=== PATIENT | female | born 1975 | race Caucasian/White ===

== ENCOUNTER 2023-04-08 15:30 | Outpatient (RCR) | payer OTHER, SELFPAY ==
--- NOTE | 2023-01-28 11:51 | PTOPEVAL1 ---
Assessment and note entered by Abdullahi De Jesus Evaluation Information Assessment Status Evaluation Diagnosis pain in the right knee Onset 07/28/22 Subjective Information Pt. reports right knee pain began about 6 months ago. She does not recall a particular incident that brought her pain on. She reports that pain is most noticable with kneeling, especially during yoga. She states that stairs and squatting do not increase her pain. She describes all her pain on the inside of the right knee. She reports that pain in the knee is not notice with walking. She states that she enjoys participating in yoga for exercise, but is limited in regards to what she can do because of her pain. She reports that her goal for therapy is to be able to kneel comfortably. Reported Pain Level Pain Score 4: Self Report Assessment PT Clinical Summary Pt. is a 47 year old female who enters the clinic with right knee pain. She presents with impaired proximal l.e. strength, impaired gait mechanics and pain with palpation and knee flexion. Continued skilled PT is indicated in order to improve these areas to allow for improved comfort with IADL's and exercise activities. Plan of Care Interventions Electrical Stimulation,Gait Training,Manual Therapy,Neuro Re-education,Patient/Caregiver Educati,Therapeutic Activities,Therapeutic Exercise PT Services Indicated Yes Treatment Frequency and 2x/week x 8 visits Duration These treatments will address the objective and functional deficits as defined above. The patient will be advanced safely and appropriately in order for the patient to progress towards his/her prior level of function. Additional exercises will be introduced and as well as a comprehensive home exercise program upon discharge, if needed, ?to ensure carryover of functional gains achieved in the clinic. This treatment plan has been reviewed and agreement upon by the patient.
--- NOTE | 2023-01-28 11:52 | OPREHPOC ---
Outpatient Therapy Plan of Care This is a Multidisciplinary Plan of Care that may contain components documented by all disciplines (PT, OT, and ST.) PT Problem 1 PT Problem #1 Knowledge Deficit PT Goal 1 Goal Pt. will be independent with a HEP addressing flexibility and l.e. strength Target Visit 2 PT Problem 2 PT Problem #2 Impaired Flexibility PT Goal 1 Goal Pt. will present at 10 degrees from full knee extension on both right and left with the 90/90 test Target Visit 8 PT Problem 3 PT Problem #3 Impaired Strength PT Goal 1 Goal Pt. will present with 5/5 gross l.e. strength on both right and left. Target Visit 8 PT Problem 4 PT Problem #4 Impaired Functional Mobil PT Goal 1 Goal Pt. will be able to kneel in order to participate in her normal exercise routine with 0/10 pain noted over duration of 2 minutes. Target Visit 8
--- NOTE | 2023-02-24 15:34 | PTOPPROG ---
Assessment and note entered by Lorena Dietrich, PT Assessment Status Progress Diagnosis pain in the right knee Therapy conditions Right knee instability, weakness Onset 07/28/22 Subjective Information Pain in right knee at worst is a 3/10 but notes a handful of times a week that almost twists it . She describes all her pain on the inside of the right knee. Has yet to return to yoga Still has pain wiht kneeling Assessment PT Clinical Summary Pt reports improving in her right knee however cont to have greatest complaints of feeling that her knee is going to twist multiple times a week . Cont to be unable to kneel without discomfort or do yoga. Pt does demonstrate increased strength in right hamstring, and (+) instability with varus testing. Pt cont to demonstrate decreased strength in the gluteal musculature bilaterally. would benefit from cont therapy to address strength and alignment to improve function without pain and return to PLOF. Plan of Care Interventions Electrical Stimulation,Gait Training,Hot Pack/Cold Pack,Manual Therapy,Neuro Re-education,Patient/ Caregiver Educati,Therapeutic Activities, Therapeutic Exercise,Ultrasound Other Interventions knee bracing? PT Services Indicated Yes Treatment Frequency and 1-2x weekly x 4 weeks Duration These treatments will address the objective and functional deficits as defined above. The patient will be advanced safely and appropriately in order for the patient to progress towards his/her prior level of function. Additional exercises will be introduced and as well as a comprehensive home exercise program upon discharge, if needed, ?to ensure carryover of functional gains achieved in the clinic. This treatment plan has been reviewed and agreement upon by the patient.
--- NOTE | 2023-03-12 13:15 | PCPTNOTE ---
Patient called & cancelled scheduled appointment this date due to car unable to start.
--- NOTE | 2023-04-09 11:36 | PTOPEVAL1 ---
Assessment and note entered by Lorena Dietrich PT Evaluation Information Assessment Status Evaluation Diagnosis pain in the right knee Therapy conditions pain in bilat hips, weakness, vertigo Subjective Information Yesterday noted her knee almost locked when was walking around the couch to her right. but this is happening less. Pt has been avoiding her kneeling position Self-perceived improvement:80% for her knee. However her hips have been more bothersome lately. Walks dogs for a living. Her busy days have 3 walks that are 30 min in length with 15-20 minute gaps between. By the third walk she has increased pain in her hips. If she has 2 days in a row like this, she has pain in both hips by her second walk . Pt voices concern that her hips are not strong enough as of yet to allow her longer walks such as when she goes on vacations and will be walking most of the day with minimal breaks. Would like to continue to increase her hip strength and endurance. Also reports dizziness with turning over in bed and with getting up and down. She feels this may be vertigo like she had previously 1-2 years ago. Reported Pain Level Pain Score 0: Self Report Additional Pain Score Comments Has been having more hips pain than knee Assessment PT Clinical Summary Pt reports knee improvement of 80% overall, and has met her goals for her knee. However she reports continued increased pain in hips with walking activities related to job requirements. She has not increased in her hip strength however has also had minimal visits with therapy due to staffing shortage and pt's limited schedule when offered last minute openings. Pt would like to continue working on her hip strength and endurance to decrease pain with activities and to prepare for longer walks with vacations coming up. Pt was educated on plan of care at reduced frequency to focus on home program for higher level strengthening and progression of muscular endurance to meet her goals. Pt also complains of vertigo symptoms that have returned from previously. Requests to do physical therapy for this as well. Pt was screened for vestibular issues with initial fin
--- NOTE | 2023-04-24 10:48 | PCPTNOTE ---
Patient arrived 30min after scheduled appointment. Stated she had 10:45am saved into her calendar. Offered 30min treatment but patient felt that wasn't necessary and was unable to do a later appointment today. Did a quick verbal review of how everything is going which patient stated starting new medication for her depression and ADHD helping her feel more motivated and focus with less body aches. Both therapist and patient reviewed upcoming appointments and times to make sure they were correct.
== END 2023-04-25 13:23 | disposition still patient (30) ==
LOC: ANHHIPT 15:30
PROVIDERS: PCP Physician Assistant Medical; Visit Provider Physician Assistant Medical
DX: M25.561 Pain in right knee (principal)
CPT/HCPCS: 97110; 97112; 97140; 97161; 97530; 97750

== ENCOUNTER 2024-12-04 10:43 | Outpatient (CLI) | payer OTHER, SELFPAY ==
--- NOTE | ~2024-12-04 | US_ITS ---
US soft tissue head and neck Ordering provider: Estrellita Worley PA-C History: . R22.1 - Localized swelling, mass and lump, neck . TECHNIQUE: Ultrasound images for the area of concern in the neck. Comparison: None. FINDINGS/impression: Hypoechoic area is seen in the right anterior cervical/submandibular area which measures 0.9 x 0.4 x 0.8 cm which is most likely lymph node. Follow-up advised.. Reviewed, dictated and finalized at location A.
== END 2024-12-04 10:44 | disposition home or self-care (01) ==
LOC: MICIMG 10:43
PROVIDERS: PCP Physician Assistant Medical; Visit Provider Physician Assistant Medical
DX: R22.1 Localized swelling, mass and lump, neck (principal)
CPT/HCPCS: 76536